=== PATIENT | female | born 1985 | race Asian ===

== ENCOUNTER 2018-04-28 21:50 | Emergency (ER) | payer OTHER ==
--- NOTE | 2018-04-28 21:56 | PDOC ---
Rapid Medical Evaluation Chief Complaint: Pain Time Seen by Provider: 04/28/18 22:00 Medical Evaluation: Allergies Allergy/AdvReac Type Severity Reaction Status Date / Time amoxicillin [Amoxicillin] Allergy Rash Verified 01/28/16 12:47 peanut Allergy Rash Verified 01/28/16 12:48 32 year old female hx alcohol intoxication c/o abdominal pain reports that " I m i haven't had my period in 3 months." found in laundromat sleeping on the floor by EMS PE: Patient alert ox3. disshelved alcohol on breath A: alcohol intoxication P: urine toxicology, UA urine patient to the ER for further management/ Discharge Disposition - Diagnosis Alcohol intoxication Qualifiers: Complication of substance-induced condition: uncomplicated Qualified Code(s): F10.920 - Alcohol use, unspecified with intoxication, uncomplicated - Referrals - Patient Instructions - Post Discharge Activity
[2018-04-28 22:02] VITALS: BP 129/81; PULSE 93; BMI 22.3
--- NOTE | 2018-04-29 00:28 | PDOC ---
Attending Attestation - HPI HPI: Patient is a 32 year old female 3 months , with PMHx of arthritis, miscarriages x2, unknown psychiatric disorders, who presents with abdominal pain and abrasion to buttocks. As per EMS, patient was found on the ground in the laundry room sleeping. Patient is currently undomiciled. She currently comes in complaing of abdominal pain as well as 1 week of dysuria and 3 scattered abrasions on buttox. She states her LMP was 3 months ago and states she is currently . - Physicial Exam PE: GENERAL: Smells of urine. Awake, alert, and oriented. No apparent distress. HEENT: Normocephalic, atraumatic. PERRL, EOM intact. CARDIOVASCULAR: Normal S1, S2. Regular rate and rhythm. PULMONARY: Clear to auscultation bilaterally. ABDOMEN: Soft, non-distended, non-tender. EXTREMITIES: Normal ROM in all four extremities. No gross deformities. SKIN: 3 scattered abrasions to buttox. Warm, dry. No rash NEUROLOGICAL: No focal neurological deficits. <Patricia Morrell - Last Filed: 04/29/18 01:00> - Resident Resident Name: Deanne Sauceda - ED Attending Attestation I have performed the following: I have examined & evaluated the patient, The case was reviewed & discussed with the resident, I agree w/resident's findings & plan, Exceptions are as noted - Medical Decision Making 04/29/18 02:08 Non domiciled 32 yo female [place] after being found on the floor on the laundromat. she states she was just sleeping there -she said she was but test was negative -there was no evidence of head trauma,pt was alert and conversant,no gross focal neuro deficits, benign abdominal exam pt discharged <Kenia Retana - Last Filed: 04/29/18 02:11>
--- NOTE | 2018-04-29 00:29 | PDOC ---
History of Present Illness - General Chief Complaint: Pain Stated Complaint: ABD PAIN, 12WKS Time Seen by Provider: 04/28/18 22:00 History Source: Patient Exam Limitations: Intoxication - History of Present Illness Initial Comments: 04/29/18 00:24 32 year old female with PMH ETOH abuse, marijuana abuse, unknown psychiatric disorder was brought to ED by EMS because she was found sleeping in a laundry room on the floor. Pt stated she was doing her laundry and was tired, so she fell asleep. She admitted to dysuria x1 week and rash to genital area x3 weeks. She denied nausea, vomiting, diarrhea, abdominal pain. She admitted to drinking every day, but would not quantify how much she drinks daily, or how much she drank today. She stated there is a chance she is , as she last had her period x3 months ago and has been having unprotected sex. Past History - Past Medical History Allergies/Adverse Reactions: Allergies Allergy/AdvReac Type Severity Reaction Status Date / Time amoxicillin [Amoxicillin] Allergy Rash Verified 04/28/18 22:02 peanut Allergy Rash Verified 04/28/18 22:02 Home Medications: Ambulatory Orders Clindamycin [Cleocin -] 300 mg PO Q6HPO #40 capsule 02/03/16 Docusate Sodium [Colace -] 100 mg PO BID #14 capsule 02/03/16 Oxycodone HCl 5 mg PO Q4H PRN #42 tablet MDD 6 tabs 02/03/16 Silver Sulfadiazine 1% Top Cr [Silvadene -] 1 applic TP BID #2 jar 02/03/16 COPD: No GI Disorders: Yes (GASTRITIS, IBS) - Immunization History Td Vaccination: No - Suicide/Smoking/Psychosocial Hx Smoking Status: Yes Smoking History: Current every day smoker Have you smoked in the past 12 months: Yes Number of Cigarettes Smoked Daily: 10 Information on smoking cessation initiated: No Hx Alcohol Use: No Drug/Substance Use Hx: No Substance Use Type: Marijuana Hx Substance Use Treatment: No Review of Systems - Review of Systems Able to Perform ROS?: Yes Constitutional: Yes: Chills HEENTM: No: Ear Pain, Nose Congestion, Throat Pain Respiratory: No: Cough, Shortness of Breath Cardiac (ROS): No: Chest Pain, Palpitations ABD/GI: No: Diarrhea, Nausea, Vomiting : Yes: Dysuria, Lesions Neurological: No: Headache, Tingling, Dizziness *Physical Exam - Vital Signs Last Vital Signs Temp Pulse Resp BP Pulse Ox 93 H 18 129/81 99 04/28/18 21:53 04/28/18 21:53 04/28/18 21:53 04/28/18 21:53 - Physical Exam Comments: 04/29/18 00:31 Constitutional: disheleved, appears older than stated age. HEENT: head is normocephalic, atraumatic. EOMI. PERRLA. Neck: supple. full ROM. Heart: regular rhythm. no murmurs. Lungs: clear to auscultation bilaterally. Abdomen: soft, nontender. normal bowel sounds. no rebound, no guarding. Extremities: peripheral pulses intact and equal. no lower extremity swelling. Neurological: CN2-12 grossly intact. Moves all four extremities. Psych: awake, alert, oriented x3. follows commands, andswers questions appropriately. Skin: ulcerated lesions to perineum, tender to palpation, no vesicles. Pt refused pelvic examination. ED Treatment Course - LABORATORY CBC & Chemistry Diagram: 04/29/18 00:45 04/29/18 00:45 Medical Decision Making - Medical Decision Making 04/29/18 01:23 32 year old female with above PMH BIBA to ED for sleeping on the floor of a laundry room. Initial Vital Signs Pulse Resp BP Pulse Ox 93 H 18 129/81 99 04/28/18 21:53 04/28/18 21:53 04/28/18 21:53 04/28/18 21:53 No tachycardia. No tachypnea. No hypotension. No hypoxia on room air. CBC, CMP, UA, Urine test sent. Lab reported CMP hemolyzed. UA negative for UTI. Urine test negative. Mild leukocytosis, 11.7. Pt to be discharged. *DC/Admit/Observation/Transfer Diagnosis at time of Disposition: Alcohol intoxication Qualifiers: Complication of substance-induced condition: uncomplicated Qualified Code(s): F10.920 - Alcohol use, unspecified with intoxication, uncomplicated - Discharge Dispostion Disposition: HOME Condition at time of disposition: Stable Decision to Admit order: No - Referrals - Patient Instructions Additional Instructions: You were seen today because you were sleeping in a laundry room. Your lab work was normal. You are not . Return to the Emergency Department for vomiting, abdominal pain, flank pain, fever, chills, chest pain, shortness of breath, or any other new, worsening or concerning symptoms. - Post Discharge Activity
[2018-04-29 01:06] LABS: URINE APPEARANCE CLEAR; URINE BILIRUBIN NEGATIVE (<2.0 mg/dL); URINE COLOR LTYELLOW; URINE GLUCOSE (UA) NEGATIVE (NEGATIVE); URINE KETONE NEGATIVE (NEGATIVE); URINE LEUK ESTERASE NEGATIVE (NEGATIVE); URINE NITRITE NEGATIVE (NEGATIVE); URINE PROTEIN NEGATIVE (NEGATIVE); URINE UROBILINOGEN NEGATIVE mg/dL (0.2-1.0)
[2018-04-29 01:20] LABS: HCG,QUALITATIVE URINE NEGATIVE
[2018-04-29 01:28] LABS: HEMOGLOBIN 11.7 GM/dL (10.7-15.3); MCH 30.6 pg (25.7-33.7); MCHC 34.4 g/dl (32.0-36.0); MEAN PLT VOLUME 8.5 fl (7.5-11.1); PLATELET COUNT 353 K/MM3 (134-434); RBC 3.82 M/mm3 (3.60-5.2); RDW 13.7 % (11.6-15.6); WHITE BLOOD COUNT 11.7 K/mm3 (4.0-10.0)
== END 2018-04-29 02:24 | disposition home or self-care (01) ==
LOC: JER 21:50
DX: F10.920 Alcohol use, unspecified with intoxication, uncomplicated (principal)
CPT/HCPCS: 36415; 81003; 84703; 85027; 99281-25

== ENCOUNTER 2019-03-19 13:09 | Emergency (ER) | payer SELFPAY ==
[2019-03-19 13:22] VITALS: BP 127/84; PULSE 92; TEMP 98; BMI 19.5
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
--- NOTE | 2019-03-20 14:32 | EKG ---
Test Reason : Blood Pressure : / mmHG Vent. Rate : 072 BPM Atrial Rate : 072 BPM P-R Int : 128 ms QRS Dur : 082 ms QT Int : 406 ms P-R-T Axes : 058 074 059 degrees QTc Int : 444 ms NORMAL SINUS RHYTHM WHEN COMPARED WITH ECG OF 28-JAN-2016 07:56, NO SIGNIFICANT CHANGE WAS FOUND Confirmed by ANDRIA KENNEY MD ([id number]) on 03/20/2019 2:32:16 PM Referred By: Confirmed By:ANDRIA KENNEY MD
[2019-03-23 13:10] LABS: HEP B CORE AB, TOT Negative (Negative)
== END 2019-03-19 15:45 | disposition home or self-care (01) ==
LOC: JER 13:09
DX: T76.21XA Adult sexual abuse, suspected, initial encounter (principal); Z20.2 Contact with and (suspected) exposure to infections with a predominantly sexual mode of transmission; J45.909 Unspecified asthma, uncomplicated; E11.9 Type 2 diabetes mellitus without complications; K21.9 Gastro-esophageal reflux disease without esophagitis; F10.10 Alcohol abuse, uncomplicated; F12.10 Cannabis abuse, uncomplicated; Z85.118 Personal history of other malignant neoplasm of bronchus and lung; Z87.19 Personal history of other diseases of the digestive system; Z91.010 Allergy to peanuts; Z88.0 Allergy status to penicillin; F17.210 Nicotine dependence, cigarettes, uncomplicated
CPT/HCPCS: 36415; 71045-TC-FY; 84703; 86704; 86706; 86707; 86708; 86709; 87340; 87389; 87491; 87522; 87591; 93005; 93010; 99283-25

== ENCOUNTER 2019-04-04 10:40 | Emergency (ER) | payer SELFPAY ==
[2019-04-04 10:56] VITALS: BP 118/51; PULSE 78; TEMP 98; BMI 19.5
--- NOTE | 2019-04-04 11:48 | PDOC ---
History of Present Illness - General Chief Complaint: Wound Stated Complaint: LT ANKLE CUT Time Seen by Provider: 04/04/19 11:00 History Source: Patient Exam Limitations: No Limitations - History of Present Illness Initial Comments: 04/04/19 11:45 HISTORY OF PRESENT ILLNESS: This is a 33-year-old woman with arthritis, diabetes who presents to the emergency department for evaluation of "I think there is something under my skin." Patient reports she has removed 2 maggots from the skin and is concerned that she may have an additional magnet. Patient reports compliance with all medications. Patient is also requesting referral for [facility] specialty and primary care as she is new to this area and all of her medical care has been performed in the [place]. No recent travel or sick contacts. PAST MEDICAL HISTORY: See HPI SURGICAL HISTORY: Denies ALLERGIES: Penicillins REVIEW OF SYSTEMS General/Constitutional: Denies fever or chills. Denies weakness, weight change. HEENT: Denies change in vision. Denies ear pain or discharge. Denies sore throat. Cardiovascular: Denies chest pain or shortness of breath. Respiratory: Denies cough, wheezing, or hemoptysis. Gastrointestinal: Denies nausea, vomiting, diarrhea or constipation. Denies rectal bleeding. Genitourinary: Denies dysuria, frequency, or change in urination. Musculoskeletal: See HPI Skin and breasts: Denies rash or easy bruising. Neurologic: Denies headache, vertigo, loss of consciousness, or loss of sensation. Psychiatric: Denies depression or anxiety. Endocrine: Denies increased thirst. Denies abnormal weight change. Hematologic/Lymphatic: Denies anemia, easy bleeding, or history of blood clots. Allergic/Immunologic: Denies hives or skin allergy. Denies latex allergy. PHYSICAL EXAM General Appearance: Well-appearing, appropriately dressed. No apparent distress , no intoxication. Respiratory/Chest: Lungs CTAB. No shortness of breath, chest tenderness, respiratory distress, accessory muscle use. No crackles, rales, rhonchi, stridor , wheezing, dullness Cardiovascular: RRR. S1, S2. No JVD, murmur, bradycardia, tachycardia. Musculoskeletal/Extremities: Normal inspection. FROM of all extremities, normal capillary refill. Pelvis Stable. No CVA tenderness. No tenderness to extremities, pedal edema, swelling, erythema or deformity. Healed wound present to the lateral aspect of the left ankle. Scar tissue palpable. Integumentary: Appropriate color, dry, warm. No cyanosis, erythema, jaundice or rash Neurologic: automobile mechanic assistant II-XII intact. Fully oriented, alert. Appropriate mood/affect. Motor strength 5/5. No appreciable EOM palsy, facial droop or sensory deficit. Past History - Past Medical History Allergies/Adverse Reactions: Allergies Allergy/AdvReac Type Severity Reaction Status Date / Time amoxicillin [Amoxicillin] Allergy Rash Verified 04/04/19 10:49 peanut Allergy Rash Verified 04/04/19 10:49 Asthma: Yes COPD: No GI Disorders: Yes (GASTRITIS, IBS, reflux) Lung CA: Yes - Immunization History Td Vaccination: No - Psycho Social/Smoking Cessation Hx Smoking Status: Yes Smoking History: Current some day smoker Have you smoked in the past 12 months: Yes Number of Cigarettes Smoked Daily: 10 Information on smoking cessation initiated: No Hx Alcohol Use: Yes (chronic) Drug/Substance Use Hx: Yes (MARIJUANA/ KATIE DUST) Substance Use Type: Marijuana Hx Substance Use Treatment: No *Physical Exam - Vital Signs Last Vital Signs Temp Pulse Resp BP Pulse Ox 98 F 78 16 118/51 L 99 04/04/19 10:50 04/04/19 10:50 04/04/19 10:50 04/04/19 10:50 04/04/19 10:50 ED Treatment Course - RADIOLOGY Radiology Studies Ordered: Category Date Time Status ANKLE & FOOT-LEFT* [RAD] Stat Radiology 04/04/19 11:43 Ordered Medical Decision Making - Medical Decision Making 04/04/19 11:47 A/P: 33-year-old woman for evaluation of perceived foreign body to left ankle Physical exam reveals scar tissue present over previously healed wound This is been explained to the patient but she is requesting an x-ray of the ankle. I will get ankle x-ray to rule out for foreign body Reassess 04/04/19 12:09 X-rays as read by me: No acute fractures or dislocations are present. No foreign body is seen. No subcutaneous emphysema present. Discharge home with referrals to primary care and specialist. Discharge - Discharge Information Problems reviewed: Yes Clinical Impression/Diagnosis: Scar tissue Condition: Stable Disposition: HOME - Admission No - Follow up/Referral Referrals: [facility] [place] [facility] [place] [Provider Group] Aury Ramos MD [Staff Physician] - Lidya Doyle MD [Staff Physician] - Paulo Mcknight MD [Staff Physician] - - Patient Discharge Instructions Additional Instructions: Your x-rays today were negative. You been given referrals for [facility], podiatry, primary care and psychiatry. Call to schedule appointments with these providers for continued evaluation. Return to emergency department for any new or worsening symptoms. Thank you very much for choosing us to provide your emergent health care needs. - Post Discharge Activity
== END 2019-04-04 12:12 | disposition home or self-care (01) ==
LOC: JERFT 10:40
DX: L90.5 Scar conditions and fibrosis of skin (principal); J45.909 Unspecified asthma, uncomplicated; E11.9 Type 2 diabetes mellitus without complications; Z87.19 Personal history of other diseases of the digestive system; Z85.118 Personal history of other malignant neoplasm of bronchus and lung; Z88.1 Allergy status to other antibiotic agents; Z91.010 Allergy to peanuts
CPT/HCPCS: 73610-TC-LT-FY; 73630-TC-LT; 99281-25